=== PATIENT | female | born 1945 | race Caucasian/White ===

== ENCOUNTER 2016-03-27 10:25 | Day surgery (SDC) | payer MEDICARE, OTHER | END 2016-03-27 23:59 | disposition home or self-care (01) | LOC: END 10:25 | PROVIDERS: ATTEND Internal Medicine Gastroenterology | DX: Z43.1 Encounter for attention to gastrostomy (principal) ==

== ENCOUNTER 2016-10-02 10:30 | Day surgery (SDC) | payer MEDICARE, OTHER ==
[~2016-10-02 10:30] MED LIST: Lactated Ringer's 1,000 ML IV SCH
== END 2016-10-02 23:59 | disposition home or self-care (01) ==
LOC: END 10:30
PROVIDERS: ATTEND Internal Medicine Gastroenterology
DX: Z43.1 Encounter for attention to gastrostomy (principal); R13.10 Dysphagia, unspecified